=== PATIENT | female | born 1985 | race Caucasian/White ===

== ENCOUNTER 2021-11-09 16:50 | Inpatient (IN) | payer BC ==
[2021-11-09 17:17] VITALS: BMI 29.5
[2021-11-09] MEDS ORDERED: HYDROcodone/Acetaminophen 5/325 mg Tablet PO PRN ×4 (17:51→22:58)
[2021-11-09] MEDS ORDERED: Promethazine HCl 25 MG/ML VIAL IM PRN (17:51)
[2021-11-09] MEDS ORDERED: hydrALAZINE 20 MG/ML VIAL SLOW IVP PRN ×3 (17:51→22:58)
[2021-11-09] MEDS ORDERED: Boostrix 0.5 ML (Tdap) VIAL (>/=7 yrs of age) IM ONE (17:51)
[2021-11-09] MEDS ORDERED: Ondansetron PF 4 MG/2 ML Vial IVP PRN ×2 (17:51→22:58)
[2021-11-09] MEDS ORDERED: Lanolin Ointment 7 GM TUBE TOP PRN (17:51)
[2021-11-09] MEDS ORDERED: Milk Of Magnesia 30 ML UDCUP PO PRN ×2 (17:51→22:58)
[2021-11-09] MEDS ORDERED: Bisacodyl 10 MG SUPP PR PRN ×2 (17:51→22:58)
[2021-11-09] MEDS ORDERED: Butorphanol Tartrate 1 MG/ML VIAL SLOW IVP PRN (17:51)
[2021-11-09] MEDS ORDERED: NS w/ Oxytocin 30 units 500 ML IV SCH ×2 (18:00→23:30)
[2021-11-09] MEDS ORDERED: Lactated Ringer's 1,000 ML IV SCH (18:00)
[2021-11-09 18:24] LABS: Hemoglobin 14.7 g/dL (12.0-15.5); Mean Corpuscular HGB CONC 33.6 g/dL (32.0-36.0); Mean Corpuscular Volume 86.2 fl (81.6-98.3); Mean Platelet Volume 10.4 fl (7.4-10.4); Platelet Count 275 10x3/uL (150-450); RBC Distribution Width 14.3 % (11.5-14.5); Red Blood Cell (RBC) Count 5.07 10x6/uL (3.90-5.03); White Blood Cell (WBC) Count 18.1 10x3/uL (3.5-10.5)
[2021-11-09] MEDS ORDERED: Fentanyl 2 mcg/Bup 0.1% Cadd 100 ML ONE (18:24)
[2021-11-09] MEDS ORDERED: Fentanyl 100 MCG/2 ML VIAL ONE (18:29)
[2021-11-09] MEDS ORDERED: Lidocaine 1% (PF) 30 ML VIAL ONE (18:54)
[2021-11-09 19:02] LABS: HBSAg Index 0.27 S/CO (0-0.99); Hep B Surf Ag Non-Reactive S/CO (NonReactive); Syphilis Antibody Nonreactive (Nonreactive); Syphilis Antibody Index 0.04 S/CO (<1.00 Non-Reactive)
[2021-11-09] MEDS ORDERED: Ibuprofen 800 MG TAB PO SCH ×2 (19:45→23:59)
[2021-11-09] MEDS ORDERED: Docusate 100 MG CAP PO SCH ×2 (21:00→23:30)
[2021-11-09] MEDS ORDERED: Misoprostol 200 MCG TAB VAG PRN (22:58)
[2021-11-09] MEDS ORDERED: Benzocaine-Menthol 82.5 ML CAN TOP PRN (22:58)
[2021-11-10] MEDS: Ibuprofen 800 MG TAB PO SCH ×3 (04:11→19:55)
[2021-11-10] MEDS ORDERED: Ibuprofen 800 MG TAB PO SCH (06:00)
[2021-11-10] MEDS ORDERED: Ferrous Sulfate 325 MG TAB PO SCH (08:00)
[2021-11-10] MEDS ORDERED: Prenatal Vitamin 1 TAB PO SCH (09:00)
[2021-11-10] MEDS: Prenatal Vitamin 1 TAB PO SCH (09:18)
[2021-11-10] MEDS: Docusate 100 MG CAP PO SCH ×2 (09:18→19:55)
[2021-11-10] MEDS: Ferrous Sulfate 325 MG TAB PO SCH ×2 (09:58→18:59)
[2021-11-11] MEDS: Ibuprofen 800 MG TAB PO SCH (05:16)
[2021-11-11 07:43] VITALS: BP 90/50; TEMP 98.6
[2021-11-11] MEDS: Ferrous Sulfate 325 MG TAB PO SCH (08:38)
[2021-11-11] MEDS: Prenatal Vitamin 1 TAB PO SCH (08:38)
[2021-11-11] MEDS: Docusate 100 MG CAP PO SCH (08:38)
== END 2021-11-11 13:18 | disposition home or self-care (01) | DRG 807 ==
LOC: CSHLD/OP 16:50 → CSHLD 18:10 → CSHPP 22:42
PROVIDERS: ADMIT Obstetrics & Gynecology; ATTEND Obstetrics & Gynecology
PROC: 10E0XZZ Delivery of Products of Conception, External Approach (ICD-10-PCS; principal; 2021-11-09)
PROC: 0KQM0ZZ Repair Perineum Muscle, Open Approach (ICD-10-PCS; 2021-11-09)
DX: O98.52 Other viral diseases complicating childbirth (principal); Z37.0 Single live birth; O70.1 Second degree perineal laceration during delivery; Z20.822 Contact with and (suspected) exposure to COVID-19; Z3A.39 39 weeks gestation of pregnancy; Z79.899 Other long term (current) drug therapy; B00.9 Herpesviral infection, unspecified; R33.9 Retention of urine, unspecified; O99.893 Other specified diseases and conditions complicating puerperium
CPT/HCPCS: 36415; 85027; 86780; 86850; 86900; 86901; 87340; 99285; J2001; U0003; U0005

== ENCOUNTER 2024-01-22 21:50 | Day surgery (SDC) | payer BC ==
[2024-01-22 22:06] VITALS: BMI 31.2
[2024-01-22] MEDS ORDERED: hydrALAZINE 20 MG/ML VIAL SLOW IVP PRN (22:43)
[2024-01-22 23:02] LABS: Bilirubin Neg (Negative); Blood, Urine Negative (Negative); Clarity Clear (Clear); Glucose, Urine (Dipstick) Normal (Negative); Ketone, Urine Negative (Negative); Leukocyte 100 (Negative); Nitrite Negative (Negative); Protein, Urine (Dipstick) Negative (Neg-Trace); Urobilinogen Normal mg/dL (Less than 2)
[2024-01-22 23:41] LABS: CAUTI Indications for Culture Pregnancy; RBC/HPF 0-3 HPF (0-3)
[2024-01-22 23:42] LABS: Bacteria/HPF 1+ HPF (None Seen)
[2024-01-22 23:43] LABS: Urine Culture Reflex Yes Yes
== END 2024-01-23 00:35 | disposition home or self-care (01) ==
LOC: CSHLD/OP 21:50
PROVIDERS: ATTEND Obstetrics & Gynecology
DX: O47.03 False labor before 37 completed weeks of gestation, third trimester (principal); O98.513 Other viral diseases complicating pregnancy, third trimester; B00.9 Herpesviral infection, unspecified; O23.593 Infection of other part of genital tract in pregnancy, third trimester; B96.89 Other specified bacterial agents as the cause of diseases classified elsewhere; Z79.899 Other long term (current) drug therapy; Z98.890 Other specified postprocedural states; Z3A.36 36 weeks gestation of pregnancy
CPT/HCPCS: 81001; 87086; 87480; 87510; 87660; 99285

== ENCOUNTER 2024-01-27 22:05 | Day surgery (SDC) | payer BC ==
[2024-01-27 22:37] VITALS: BMI 30.4
[2024-01-27] MEDS ORDERED: hydrALAZINE 20 MG/ML VIAL SLOW IVP PRN (23:28)
== END 2024-01-28 01:19 | disposition home or self-care (01) ==
LOC: CSHLD/OP 22:05
PROVIDERS: ATTEND Obstetrics & Gynecology
DX: O47.1 False labor at or after 37 completed weeks of gestation (principal); O09.43 Supervision of pregnancy with grand multiparity, third trimester; O09.523 Supervision of elderly multigravida, third trimester; O23.593 Infection of other part of genital tract in pregnancy, third trimester; B96.89 Other specified bacterial agents as the cause of diseases classified elsewhere; Z3A.37 37 weeks gestation of pregnancy; Z79.899 Other long term (current) drug therapy; Z88.8 Allergy status to other drugs, medicaments and biological substances
CPT/HCPCS: 99283

== ENCOUNTER 2024-02-08 20:59 | Inpatient (IN) | payer BC ==
[2024-02-08 21:13] VITALS: BMI 30.4
[2024-02-08] MEDS ORDERED: hydrALAZINE 20 MG/ML VIAL SLOW IVP PRN (21:42)
[2024-02-08] MEDS ORDERED: Ondansetron PF 4 MG/2 ML Vial IVP PRN (22:15)
[2024-02-08] MEDS ORDERED: Promethazine HCl 25 MG/ML VIAL IM PRN (22:15)
[2024-02-08] MEDS ORDERED: Oxytocin 30 units/NS 500 ML 500 ML IV SCH ×3 (22:15→22:45)
[2024-02-08] MEDS ORDERED: Lidocaine 1% (PF) 30 ML VIAL SC PRN (22:15)
[2024-02-08] MEDS ORDERED: Tranexamic Acid 1,000 MG/10 ML VIAL IVP PRN (22:43)
[2024-02-08] MEDS ORDERED: Methylergonovine 0.2 MG/ML VIAL IM PRN (22:43)
[2024-02-08] MEDS ORDERED: Misoprostol 200 MCG TAB PR PRN (22:43)
[2024-02-08] MEDS ORDERED: Docusate 100 MG CAP PO PRN (22:43)
[2024-02-08] MEDS ORDERED: Carboprost 250 MCG/ML AMP IM PRN (22:43)
[2024-02-08] MEDS ORDERED: Diphenoxylate HCl/Atropine Tablet PO PRN ×2 (22:43)
[2024-02-08] MEDS ORDERED: Lactated Ringer's 1,000 ML IV SCH (22:45)
[2024-02-08 23:03] LABS: Hematocrit 43.6 % (34.9-44.5); Hemoglobin 14.5 g/dL (12.0-15.5); Mean Corpuscular HGB CONC 33.3 g/dL (32.0-36.0); Mean Corpuscular Hemoglobin 28.2 pg (27.0-33.0); Mean Corpuscular Volume 84.8 fL (81.6-98.3); Mean Platelet Volume 10.4 fL (7.4-10.4); Platelet Count 282 10x3/uL (150-450); RBC Distribution Width 14.4 % (11.5-14.5); Red Blood Cell (RBC) Count 5.14 10x6/uL (3.90-5.03); White Blood Cell (WBC) Count 17.8 10x3/uL (3.5-10.5)
[2024-02-08 23:32] LABS: HBsAg Index 0.17 S/CO (0-0.99); Hep B Surf Ag - L&D Non-Reactive S/CO (NonReactive); Syphilis Antibody Nonreactive (Nonreactive); Syphilis Antibody Index 0.05 S/CO (<1.00 Non-Reactive)
[2024-02-09] MEDS: Acetaminophen 500 MG TAB PO PRN (00:39)
[2024-02-09] MEDS: Ibuprofen 800 MG TAB PO PRN (00:39)
[2024-02-09] MEDS ORDERED: hydrALAZINE 20 MG/ML VIAL SLOW IVP PRN (00:58)
[2024-02-09] MEDS ORDERED: Bisacodyl 10 MG SUPP PR PRN (00:58)
[2024-02-09] MEDS ORDERED: Benzocaine-Menthol 82.5 ML CAN TOP PRN (00:58)
[2024-02-09] MEDS ORDERED: HYDROcodone/Acetaminophen 5/325 mg Tablet PO PRN ×2 (00:58)
[2024-02-09] MEDS ORDERED: Misoprostol 200 MCG TAB VAG PRN (00:58)
[2024-02-09] MEDS ORDERED: Ondansetron PF 4 MG/2 ML Vial IVP PRN (00:58)
[2024-02-09] MEDS ORDERED: Oxytocin 30 units/NS 500 ML 500 ML IV SCH (00:58)
[2024-02-09] MEDS ORDERED: Milk Of Magnesia 30 ML UDCUP PO PRN (00:58)
[2024-02-09] MEDS: Oxytocin 30 units/NS 500 ML 500 ML ONE (02:08)
[2024-02-09] MEDS: Lidocaine 1% (PF) 30 ML VIAL ONE (02:08)
[2024-02-09] MEDS: Ferrous Sulfate 325 MG TAB PO SCH (07:50)
[2024-02-09] MEDS: Docusate 100 MG CAP PO SCH (08:14)
[2024-02-09] MEDS: Ibuprofen 800 MG TAB PO SCH (08:14)
[2024-02-09] MEDS: Prenatal Vitamin 1 TAB PO SCH (08:14)
[2024-02-09] MEDS: Boostrix 0.5 ML (Tdap) VIAL (>/=7 yrs of age) IM ONE (08:15)
[2024-02-09 20:09] VITALS: BP 109/57; TEMP 97.9
== END 2024-02-09 23:20 | disposition home or self-care (01) | DRG 807 ==
LOC: CSHLD/OP 20:59 → CSHLD 22:17 → CSHPP 02-09 00:45
PROVIDERS: ADMIT Obstetrics & Gynecology; ATTEND Obstetrics & Gynecology
PROC: 10E0XZZ Delivery of Products of Conception, External Approach (ICD-10-PCS; principal; 2024-02-08)
PROC: 0KQM0ZZ Repair Perineum Muscle, Open Approach (ICD-10-PCS; 2024-02-08)
DX: O98.52 Other viral diseases complicating childbirth (principal); Z37.0 Single live birth; B00.9 Herpesviral infection, unspecified; Z3A.38 38 weeks gestation of pregnancy; O70.1 Second degree perineal laceration during delivery; Z79.899 Other long term (current) drug therapy
CPT/HCPCS: 85027; 86780; 86850; 86900; 86901; 87340; J2590